=== PATIENT | male | born 1955 | race Caucasian/White ===

== ENCOUNTER → 2017-11-16 07:53 | Outpatient (CLI) | payer MEDICAID, SELFPAY ==
[2017-09-24 15:32] VITALS: BMI 25.3
--- NOTE | 2017-11-16 07:57 | CT_ITS ---
STUDY: CT ABDOMEN WITH CONTRAST REASON FOR EXAM: Male, 62 years old. History of lung cancer and prior chemotherapy and radiation therapy. RADIATION DOSAGE (If Supplied By Facility): CTDIvol = ( 9.86 ) mGy, DLP = ( 529.06 ) mGycm TECHNIQUE: Transaxial images were obtained post I.V. administration of 100mL ml of Isovue 300 contrast, and without oral contrast. Sagittal and coronal images were reconstructed. Individualized dose optimization techniques were used for this CT. COMPARISON: None. FINDINGS: There is a 2.9 cm x 2.1 cm inhomogeneous nodule in the posteromedial segment of the right lower lobe. There is evidence of peripheral stranding. Correlation with a PET scan is recommended for further evaluation. The visualized portions of the heart are within normal limits. Normal liver. Normal gallbladder and extrahepatic biliary system. Borderline splenomegaly. Normal pancreas. Normal bilateral adrenal glands. Normal right kidney. Normal left kidney. There is a small hiatal hernia. Normal small intestine. Normal colon. The appendix is visualized and appears normal. There is scattered atherosclerotic calcification of the abdominal aorta, without a demonstrated aneurysm. Normal inferior vena cava. Normal retroperitoneum. Normal abdominal wall. There are degenerative changes of the visualized lumbar spine. CT/Abdomen WITH IV Contrast IMPRESSION: Borderline splenomegaly. Nodular density in the posteromedial segment of the right lower lobe as described. Correlation with a PET scan is recommended. Electronically Signed: Jose Alejandro Kiran MD at 8:33 EST Tel [phone], Service support ,
--- NOTE | 2017-11-16 07:57 | CT_ITS ---
STUDY: CT CHEST WITH CONTRAST REASON FOR EXAM: Male, 62 years old. History of lung cancer. Prior chemotherapy and radiation therapy. RADIATION DOSAGE (If Supplied By Facility): CTDIvol = ( 9.86 ) mGy, DLP = ( 529.06 ) mGycm TECHNIQUE: Transaxial imaging was performed following intravenous administration of 100mL ml of Isovue 300 contrast material. Multiplanar coronal and sagittal images were reformatted. Individualized dose optimization techniques were used for this CT. COMPARISON: None. FINDINGS: Small bilateral axillary lymph nodes. Hyperinflation. Mild degree of emphysematous changes. There is a 3.7 mm linear density at the left lung apex most likely representing a focal area of scarring. There is a 3.4 cm x 2.6 cm inhomogeneous nodular density in the superior segment of the right lower lobe. This abuts the pleural surface. There is also evidence of increased linear densities in the posterior medial segment of the right lower lobe with areas of confluence and airspace disease. This may represent either a focal mass lesion or possible post radiation fibrosis with the patient's history of prior radiation therapy. Correlation with a PET scan is recommended. There are scattered tiny noncalcified nodules in the peripheral aspect of the left lower lobe. There is no demonstrated pleural abnormality. Normal heart and pericardium. Normal mediastinum. There is a 2.5 cm x 2.1 cm right hilar lymph node surrounding the right intermediate stem bronchus. Normal enhanced pulmonary arteries. Normal aorta arch and descending thoracic aorta. There are multi-level degenerative changes of the thoracic spine. There is no demonstrated abnormality of the visualized upper abdomen. CT/Chest WITH Contrast IMPRESSION: Inhomogeneous nodular density in the superior segment of the right lower lobe as well as in the posteromedial segment of the right lower lobe. These may represent residual masses versus a combination of masses and postradiation fibrosis. Correlation with a PET scan is recommended. Electronically Signed: Jose Alejandro Kiran MD at 8:31 EST Tel [phone], Service support ,
== END ==
PROVIDERS: Family Provider Family Medicine; PCP Family Medicine; Visit Provider Internal Medicine Hematology & Oncology
DX: C34.31 Malignant neoplasm of lower lobe, right bronchus or lung (principal); C77.9 Secondary and unspecified malignant neoplasm of lymph node, unspecified
CPT/HCPCS: 71260; 74160; Q9967

== ENCOUNTER → 2017-11-30 08:35 | Outpatient (CLI) | payer MEDICAID, SELFPAY ==
[2017-09-24 15:32] VITALS: BMI 25.3
--- NOTE | 2017-11-30 08:00 | PET_ITS ---
EXAMINATION: FDG PET-CT ? Head to Pelvis INDICATIONS: A 62-year-old male with reported history of carcinoma of the lung presenting for restaging examination. COMPARISON EXAMINATION: CT of the chest, abdomen and pelvis reports dated 11/16/17, previous FDG PET study report dated 08/05/17 INDEX LESION SIZE SUV INTERPRETATION NEW: left temporal surgical bed, circumferential increase Lesion to white matter ratio 1.8:1 May be further investigated with magnetic resonance imaging PERSISTENT: right lower hemithorax pulmonary parenchyma, right lower lobe 20.7-mm comp. to 25.0-mm (08/05/17) 1.8 Quantitative criteria for viable neoplasm are not fulfilled PERSISTENT: mediastinum, right thoracic perihilum 16.5-mm comp. to 13.0-mm (08/05/17) 2.2 (max) Quantitative criteria for viable neoplasm are not fulfilled TECHNIQUE: Following the intravenous administration of 14.27 mCi of F-18 deoxyglucose via the right antecubital fossa, multiplanar image acquisitions of the head, neck, chest, abdomen and pelvis to level of mid thigh, obtained at one hour post radiopharmaceutical administration contemporaneously interpreted with the current CT of the head, neck, chest, abdomen and pelvis, to level of mid thigh, dated 11/30/17 via coregistration, and CT of the chest, abdomen and pelvis reports dated 11/16/17, previous FDG PET study report dated 08/05/17 reveals: Blood glucose level:?? 80 mg/dl?Height:?72 inches?Weight: 170 lbs. FINDINGS: 1. There is a circumferential increase in glucose metabolism manifest in the region of the left temporal lobe with central photopenia in the apparent surgical bed. The calculated lesion to white matter ratio is 1.8:1 (n<1.5:1). 2. Presumably persistent increased glucose concentration is noted in the right lower posterior hemithorax pulmonary parenchyma, right lower lobe, generating a corrected maximum calculated standard uptake value of 1.8. The maximal axial diameter of the largest corresponding metabolic abnormality is 20.7-mm. 3. Enhanced glucose concentration is demonstrated in the subcarinal mediastinum and bilateral thoracic perihilum generating a corrected maximum calculated standard uptake value of 2.2. The largest, corresponding metabolic abnormality has a maximal axial diameter of 16.5-mm. 4. Normal physiologic distribution of the radiopharmaceutical is apparent in the hepatic (2.7) and splenic parenchyma, both renal units, bladder and visualized intestinal tract. There is relative preservation of the remaining cerebral cortical and subcortical structures. Diffuse radiopharmaceutical concentration is noted in all four quadrants of the abdomen and pelvis. Prominent glucose metabolism is defined in the descending thoracic aorta. Pertinent CT findings are as follows: CHEST: There is atherosclerotic calcification defined in the thoracic aorta without evidence of dilatation-aneurysm formation. Bilateral subcentimeter axillary soft tissue densities with fatty hilus formation are non-glucose avid. Emphysematous change is noted in the bilateral upper lung zones. ABDOMEN AND PELVIS: There is atherosclerotic calcification defined in the abdominal aorta without evidence of dilatation-aneurysm formation. Pelvic arterial calcification is observed. Right-left inguinal soft tissue densities are ametabolic. Dystrophic calcification is manifest within the prostate gland without evidence of quantitatively significant increased glucose metabolism. SKELETAL: Degenerative changes are noted in the cervical, thoracic and lumbar spine. PET/PET/CT Tumor Base -Thigh Subs IMPRESSION: 1. Increased glucose metabolism manifest in the left temporal region in the apparent distribution of the postsurgical bed may be further investigated with magnetic resonance imaging for further characterization, secondary to quantitative degree of uptake. (Delbeke et al, Radiology 195:47, 1995). 2. Enhanced glucose concentration redemonstrated in the right lower posteromedial lung zone does not fulfill quantitative criteria for viable neoplasm. (Kezia et al, Journal of Nuclear Medicine 43:302 P, 2002). 3. The mediastinal and right thoracic perihilar increase in glucose concentration does not fulfill quantitative criteria for centrally located thoracic/mediastinal viable neoplasm. (Marilou et al, Journal of Clinical Oncology 16:2142, 1998). 4. Prominent glucose concentration observed in the descending thoracic aorta is commensurate with activated leukocytes associated with atherosclerotic plaque formation. (Greg et al, Clinical Nuclear Medicine 29:93, 2004). 5. Overall, compared to the prior FDG PET study dated 08/05/17, the increase in glucose metabolism manifest in the left temporal presumed surgical bed may be further investigated with magnetic resonance imaging as defined above. Electronic Signature Simon Lopez D.O. Electronically Signed: Simon Lopez DO at 23:18 EDT Tel , Service support ,
--- NOTE | 2017-12-01 20:33 | ONC.PHONE ---
I was alerted to the new MRI brain that Mr. Alonzo completed today. Dr. Blanton was called with the results and there is no report in the system yet but upon my review there is a significant increase in left brain edema with compression of the left lateral ventricle and midline shift. I called Mr. Alonzo to review this result and urge him to go to the ED tonight for evaluation and to initiate decadron to reduce the edema. Clinically he mentioned that he was doing ok without symptoms. He was resistant to going to the ED tonight but in the end confirmed that he would call his friend for a ride and proceed to the [facility] ED. I called the ED to alert them he may be coming in for an evaluation and recommended loading decadron dose of 10 mg IV followed by 4 mg q6 hr and transfer to [facility] for neurosurgical evaluation. I gave Mr. Alonzo my contact information and he mentioned he would call me with questions or concerns.
== END ==
PROVIDERS: Family Provider Family Medicine; PCP Family Medicine; Visit Provider Internal Medicine Hematology & Oncology
DX: C34.31 Malignant neoplasm of lower lobe, right bronchus or lung (principal); C77.9 Secondary and unspecified malignant neoplasm of lymph node, unspecified; C79.31 Secondary malignant neoplasm of brain; R93.8 Abnormal findings on diagnostic imaging of other specified body structures
CPT/HCPCS: 78815; A9552; A4216

== ENCOUNTER → 2017-12-01 12:27 | Outpatient (CLI) | payer MEDICAID, SELFPAY ==
[2017-09-24 15:32] VITALS: BMI 25.3
--- NOTE | 2017-12-01 12:34 | MRI_ITS ---
STUDY: MRI BRAIN WITH AND WITHOUT CONTRAST REASON FOR EXAM: Male, 62 years old. Dizziness and known lung cancer. Metastatic brain cancer. History of left temporal lobe lesion resection June 03, 2016 TECHNIQUE: Standardized multiplanar fat and water weighted pulse sequences were obtained. 8 ml of Gadavist contrast material was administered intravenously for the contrast portion of the examination. COMPARISON: None. FINDINGS: There is now effacement of the left lateral ventricle and 8 mm left to right midline shift at the level of the septum pellucidum. There is sulcal effacement of the left temporal lobe. There is new diffuse edema of the left temporal lobe white matter. Left temporal cystic lesion appears to represent the tumor bed which appears smaller measuring 2.2 x 2.6 cm in AP and transverse dimensions. Foci of restricted diffusion are noted within the tumor bed which may represent hemorrhage. There is new peripheral gyriform enhancement along the tumor bed, operculum, and insula. This measures approximately 4.7 x 3 cm in overall AP and transverse dimensions. There also appears to be enhancement along the inferior horn of the right lateral ventricle laterally.. Normal right basal ganglia. Edema appears to extend into the basal ganglia and thalamus on the left. This also extends into the cerebral peduncle. Right thalamus appears normal. There is no extra-axial fluid accumulation. Normal flow voids within the major intracranial circulation suggesting patency by spin echo criteria. Normal venous enhancement. Normal sella turcica, pituitary gland, infundibular stalk, optic chiasm and hypothalamus. Normal tectal plate and pineal gland. Normal midbrain, yaneth and medulla. Normal cerebellum. Normal basal cisterns. Normal bilateral temporal bones. Normal bilateral internal auditory canals. No demonstrated orbital abnormality, within the constraints of a routine brain study. The left nasal sinuses opacified. The wall appears thickened. Left pterional craniotomy. Normal visualized soft tissue structures. Normal visualized upper cervical spine. MRI/Brain W/WO Contrast IMPRESSION: New left temporal enhancement edema and mass effect with midline shift suggestive of recurrent neoplasm. Probable secondary focus right temporal lobe. N.B. : The above information has been verbally conveyed by Malik Jim MD to Dr. Blanton, Covering Physician, on 12/01/2017 17:41:43 (ET). Electronically Signed: Malik Jim MD at 17:08 EDT , Service support , N.B. : The above information has been verbally conveyed by Malik Jim MD to Dr. Blanton, Covering Physician, on 12/01/2017 17:41:43 (ET).
== END ==
PROVIDERS: Family Provider Family Medicine; PCP Family Medicine; Visit Provider Internal Medicine Hematology & Oncology
DX: R42 Dizziness and giddiness (principal); C79.31 Secondary malignant neoplasm of brain; C34.31 Malignant neoplasm of lower lobe, right bronchus or lung; C77.9 Secondary and unspecified malignant neoplasm of lymph node, unspecified
CPT/HCPCS: 70553; A9585

== ENCOUNTER 2017-12-01 21:01 | Emergency (ER) | payer MEDICAID, SELFPAY ==
[2017-09-24 15:32] VITALS: BMI 25.3
[2017-12-01 21:02] VITALS: BP 120/75; PULSE 85; RESP 14; TEMP 36.4; O2SAT 98; BMI 22.2
--- NOTE | 2017-12-01 21:48 | ED.VISSUMM ---
- ER Visit Summary Date of Service: 12/01/17 Chief Complaint: Brain lesion History of Present Illness: The patient is a 62 M who was sent to the emergency department tonight by Dr. Angelo Barreto from the [facility] cancer network here in [place]. Patient is a 62-year-old male who has metastatic lung cancer. He is currently on Keytruda. She has a history of metastatic lung cancer with metastases to the brain. He had prior neurosurgery at [facility] 2 years ago. He has been having dizziness and some confusion. Patient had an outpatient MRI today which demonstrated a new temporal enhancement mass with edema and mass-effect of 8 mm to the right. Is also suggestion of a new lesion in the right temporal lobe. Physical Examination: Afebrile vital signs are stable Gen: Well-nourished well-developed Head: Normocephalic atraumatic Eyes: Perrl EOMI ENT: TMs clear no rhinorrhea moist mucous membranes Neck: Supple no lymphadenopathy no JVD nontender CVS: Regular rate rhythm no murmurs normal S1-S2 Respiratory: No distress clear to auscultation bilaterally chest nontender Abdomen: Soft nontender nondistended normal bowel sounds no masses Back: Nontender Extremity: Nontender no edema Skin: Normal color no rash Neuro: alert orientated ?3 CN II-XII intact patient has difficulty finding certain words. Psych: Occasionally agitated Test Results: MRI was reviewed. Emergency Department Course and Treatment: Basic labs are obtained. Patient received IV Decadron. I spoke with [facility] and the patient has been accepted in transfer. Impression: 1. Metastatic lung cancer 2. New brain lesion with edema/shift This note was generated with [employer] dictation software. It may contain incorrect words, spelling, and punctuation that were not noted in review of the chart prior to signing ED Disposition - Plan for ED Patient: Chief Complaint: Confusion Referrals: Paula Hayes [Primary Care Provider] -
--- NOTE | 2017-12-01 21:51 | ED.DCSUM_ITS ---
- ER Visit Summary Date of Service: 12/01/17 Chief Complaint: Brain lesion History of Present Illness: The patient is a 62 M who was sent to the emergency department tonight by Dr. Angelo Barreto from the [facility] cancer network here in [place]. Patient is a 62-year-old male who has metastatic lung cancer. He is currently on Keytruda. She has a history of metastatic lung cancer with metastases to the brain. He had prior neurosurgery at [facility] 2 years ago. He has been having dizziness and some confusion. Patient had an outpatient MRI today which demonstrated a new temporal enhancement mass with edema and mass- effect of 8 mm to the right. Is also suggestion of a new lesion in the right temporal lobe. Physical Examination: Afebrile vital signs are stable Gen: Well-nourished well-developed Head: Normocephalic atraumatic Eyes: Perrl EOMI ENT: TMs clear no rhinorrhea moist mucous membranes Neck: Supple no lymphadenopathy no JVD nontender CVS: Regular rate rhythm no murmurs normal S1-S2 Respiratory: No distress clear to auscultation bilaterally chest nontender Abdomen: Soft nontender nondistended normal bowel sounds no masses Back: Nontender Extremity: Nontender no edema Skin: Normal color no rash Neuro: alert orientated ?3 CN II-XII intact patient has difficulty finding certain words. Psych: Occasionally agitated Test Results: MRI was reviewed. Emergency Department Course and Treatment: Basic labs are obtained. Patient received IV Decadron. I spoke with [facility] and the patient has been accepted in transfer. Impression: 1. Metastatic lung cancer 2. New brain lesion with edema/shift This note was generated with [employer] dictation software. It may contain incorrect words, spelling, and punctuation that were not noted in review of the chart prior to signing ED Disposition - Plan for ED Patient: Chief Complaint: Confusion Referrals: Paula Hayes [Primary Care Provider] -
[2017-12-01 22:05] LABS: Absolute Lymphocyte Count 4.93 X10^3/ul (0.83-4.51); Absolute Neutrophil Count 6.5 X10^3/uL (2.0-7.7); Basophil# 0.03 X10^3/uL; Basophil% 0.2 % (0-1); Eosinophil# 0.39 X10^3/uL; Hematocrit 44.6 % (40-54); Hemoglobin 14.2 g/dl (13.0-16.5); Lymphocyte # 4.93 X10^3/ul (4.0); Lymphocyte % 38.3 % (19-41); Mean Corp Hgb Conc 31.8 g/gl (32-36); Mean Corpuscular Hgb 30.5 pg (27.0-32.0); Mean Corpuscular Volume 95.9 fL (80-94); Monocyte# 1.06 X10^3/uL; Monocyte% 8.2 % (0-10); Neutrophil # 6.45 X10^3/uL (2.7-7.7); Neutrophil % 50.1 % (47-70); POSITIVE COUNT NO; POSITIVE DIFFERENTIAL NO; POSITIVE MORPHOLOGY NO; Platelet Count 245 K/mm3 (150-450); RBC Distribution Width CV 12.5 % (11.6-14.6); Red Blood Count 4.65 M/mm3 (4.6-6.2); White Blood Count 12.9 K/mm3 (4.4-11.0)
[2017-12-01 22:10] LABS: Prothrombin Time (Protime)PT. 13.2 SECONDS (11.7-14.9)
[2017-12-01 22:11] LABS: Partial Thromboplast Time 28.3 Seconds (24.1-36.2)
[2017-12-01 22:13] LABS: Anion Gap 10 (5-15); BUN 23 mg/dL (7-18); BUN/Creat Ratio 19.2 RATIO (10-20); Chloride 105 mmol/L (98-107); EST Glomerular Filtration Rate 65 mL/min (>60); Est Glom Filt Rate - Afr Amer 79 mL/min (>60); Glucose 92 mg/dL (74-106); Potassium 3.7 mmol/L (3.5-5.1); Sodium Level 140 mmol/L (136-145)
== END 2017-12-01 23:08 | disposition short-term general hospital (02) ==
PROVIDERS: Emergency Provider Emergency Medicine; Family Provider Family Medicine; PCP Family Medicine
DX: G93.6 Cerebral edema (principal); C34.31 Malignant neoplasm of lower lobe, right bronchus or lung; C79.31 Secondary malignant neoplasm of brain; Z79.899 Other long term (current) drug therapy; C77.9 Secondary and unspecified malignant neoplasm of lymph node, unspecified
CPT/HCPCS: 70553; 80048; 85025; 85610; 85730; 96374; 99283; A9585; A4216

== ENCOUNTER → 2018-05-03 07:06 | Outpatient (CLI) | payer MEDICARE, MEDICAID, SELFPAY ==
[2017-09-24 15:32] VITALS: BMI 25.3
== END ==
PROVIDERS: Family Provider Family Medicine; PCP Family Medicine; Visit Provider Internal Medicine Hematology & Oncology
DX: C34.31 Malignant neoplasm of lower lobe, right bronchus or lung (principal); C91.90 Lymphoid leukemia, unspecified not having achieved remission; C79.31 Secondary malignant neoplasm of brain; C77.9 Secondary and unspecified malignant neoplasm of lymph node, unspecified
CPT/HCPCS: 71260; 74160; Q9967; A4216

== ENCOUNTER → 2018-07-20 12:14 | Outpatient (CLI) | payer MEDICARE, MEDICAID, SELFPAY ==
[2017-09-24 15:32] VITALS: BMI 25.3
--- NOTE | 2018-07-20 12:17 | CT_ITS ---
STUDY: CT ABDOMEN WITH CONTRAST REASON FOR EXAM: Male, 62 years old. Restaging of non-small cell lung cancer with brain metastasis. RADIATION DOSAGE (If Supplied By Facility): CTDIvol = ( 17.08 ) mGy, DLP = ( 1064.22 ) mGycm TECHNIQUE: Transaxial images were obtained post I.V. administration of 100 ml of Isovue 300 contrast, and without oral contrast. Sagittal and coronal images were reconstructed. Individualized dose optimization techniques were used for this CT. COMPARISON: Comparison is made with prior study dated May 03, 2018. FINDINGS: Thickening of the left major fissure. Mild increased markings at the lung bases suggestive of scarring. The visualized portions of the heart are within normal limits. Stable appearance of the small hepatic cysts. Normal gallbladder and extrahepatic biliary system. Normal spleen. Normal pancreas. Normal bilateral adrenal glands. Normal right kidney. Normal left kidney. There is a small hiatal hernia. Normal small intestine. Normal colon. The appendix is visualized and appears normal. There is scattered atherosclerotic calcification of the abdominal aorta, without a demonstrated aneurysm. Normal inferior vena cava. There is borderline retroperitoneal lymphadenopathy with enlarged nodes no greater than 10mm in the short axis diameter. Normal abdominal wall. There are diffuse degenerative changes of the visualized lumbar spine. CT/Abdomen WITH IV Contrast IMPRESSION: Multiple small hepatic cysts. These are essentially unchanged. Electronically Signed: Jose Alejandro Kiran MD at 14:06 EST Tel [phone], Service support ,
--- NOTE | 2018-07-20 12:17 | CT_ITS ---
STUDY: CT CHEST WITH CONTRAST REASON FOR EXAM: Male, 62 years old. Restaging for non-small cell lung cancer. History of a craniotomy for brain metastasis and radiation and chemotherapy. RADIATION DOSAGE (If Supplied By Facility): CTDIvol = ( 17.08 ) mGy, DLP = ( 1064.22 ) mGycm TECHNIQUE: Transaxial imaging was performed following intravenous administration of 100 ml of Isovue 300 contrast material. Multiplanar coronal and sagittal images were reformatted. Individualized dose optimization techniques were used for this CT. COMPARISON: Comparison is made with prior study dated May 03, 2018. FINDINGS: Hyperinflation. Emphysematous changes. There is a 1.8 cm x 1.9 cm spiculated nodular density in the superior segment of the right lower lobe as seen on image #82 on the axial scan. Increased linear markings in the lingular segment of the left upper lobe. This most likely ribs and scarring. The previously seen irregular nodular density in the lateral aspect of the right temporal as cleared. The previously seen inhomogeneous density in the lingular segment of the left upper lobe as improved as compared to prior study. There is no demonstrated pleural abnormality. Normal heart and pericardium. There are multiple small lymph nodes within the mediastinum, which are normal in size and morphology most compatible with reactive lymph hyperplasia. Small right hilar lymph node. Normal enhanced pulmonary arteries. Normal aorta arch and descending thoracic aorta. There are multi-level degenerative changes of the thoracic spine. There is no demonstrated abnormality of the visualized upper abdomen. CT/Chest WITH Contrast IMPRESSION: The previously seen nodular density in the superior segment of the right lower lobe has decreased it presently measures 1.8 cm x 1.9 cm. Electronically Signed: Jose Alejandro Kiran MD at 14:02 EST Tel [phone], Service support ,
== END ==
PROVIDERS: Family Provider Family Medicine; PCP Family Medicine; Referring Provider Internal Medicine Hematology & Oncology; Visit Provider Internal Medicine Hematology & Oncology
DX: C34.31 Malignant neoplasm of lower lobe, right bronchus or lung (principal); C77.9 Secondary and unspecified malignant neoplasm of lymph node, unspecified; C79.31 Secondary malignant neoplasm of brain; C91.90 Lymphoid leukemia, unspecified not having achieved remission; Z79.899 Other long term (current) drug therapy
CPT/HCPCS: 71260; 74160; 80053; 84100; 84443; 85025; Q9967; A4216